=== PATIENT | female | born 1975 | race Caucasian/White ===

== ENCOUNTER → 2017-11-13 | Emergency (ER) | payer BC ==
[~2017-11-13] VITALS: Ht 185.4 cm; Wt 113.4 kg
[~2017-11-13] MED LIST: CALCIUM PO; DAILY VITAMIN1 EAC3 PO; PEPCID20 MG PO; TRIAMCINOLONE A15 G4 TP; VITAMIN E PO
[2017-11-14 00:57] VITALS: BP 151/90
== END | disposition home or self-care (01) ==
LOC: FSED 20:28
DX: R21 Rash and other nonspecific skin eruption (principal); L50.0 Allergic urticaria; F17.210 Nicotine dependence, cigarettes, uncomplicated

== ENCOUNTER 2019-08-10 10:20 | Observation (INO) | payer BC ==
[2019-08-07 13:55] LABS: BILIRUBIN,URINE NEGATIVE (NEGATIVE); CLARITY,URINE SL CLOUDY (CLEAR); COLOR,URINE YELLOW (YELLOW); KETONES,URINE NEGATIVE (NEGATIVE); LEUKOCYTE ESTERASE ,URINE SMALL (NEGATIVE); NITRITE,URINE NEGATIVE (NEGATIVE); PROTEIN,URINE DIPSTICK NEGATIVE (NEGATIVE); URINE UROBILINOGEN 0.2 mg/dL (0.2 - 1)
[2019-08-07 14:03] LABS: ANION GAP 14.7 mmol/L (8-16); BLOOD UREA NITROGEN 10 mg/dL (7-26); BUN/CREATININE RATIO 11 (6-25); CALCIUM 9.9 mg/dL (8.4-10.2); CARBON DIOXIDE 25 mmol/L (22-29); CHLORIDE 101 mmol/L (98-107); CREATININE, SERUM 0.93 mg/dL (0.57-1.11); EST GLOMERULAR FILTRATION RATE > 60 ML/MIN (60-); GLUCOSE 207 mg/dL (74-118); POTASSIUM 3.7 mmol/L (3.5-5.1); SODIUM 137 mmol/L (136-145)
--- NOTE | 2019-08-07 14:03 | Diagnostic Imaging Report ---
EXAMINATION: CHEST 2 VIEWS INDICATION: Pre-operative COMPARISON: None FINDINGS: LINES/TUBES:None LUNGS:The lungs are well-inflated. No focal consolidation or pulmonary edema. PLEURA:No pleural effusion or pneumothorax. MEDIASTINUM:The cardiomediastinal silhouette appears normal in size and shape. BONES/SOFT TISSUES:No acute osseous injury. ABDOMEN:No free air under the diaphragm. IMPRESSION: No focal pneumonia or pulmonary edema. Signed by: Erica Page MD on 08/07/2019 2:00 PM
[2019-08-07 14:17] LABS: BASOPHILS # (AUTO) 0.1 (0.0-0.1); BASOPHILS % 0.6 % (0.0-1.0); EOSINOPHILS # (AUTO) 0.2 (0.0-0.4); EOSINOPHILS % 1.9 % (0.0-6.0); HEMATOCRIT 44.8 % (34.2-44.1); HEMOGLOBIN 15.1 g/dL (12.0-16.0); LYMPHOCYTES # (AUTO) 2.4 (1.0-3.2); LYMPHOCYTES % 27.9 % (18.0-39.1); MEAN CORPUSCULAR HEMOGLOBIN 31.4 pg (28-32); MEAN CORPUSCULAR HGB CONC 33.7 g/dL (31-35); MEAN CORPUSCULAR VOLUME 93.1 fL (81-99); MONOCYTES # (AUTO) 0.5 (0.2-0.8); MONOCYTES % 6.3 % (4.4-11.3); NEUTROPHILS # (AUTO) 5.3 (2.1-6.9); NEUTROPHILS % 62.6 % (38.7-80.0); PLATELET COUNT 250 x10e3/uL (140-360); RED BLOOD COUNT 4.81 x10e6/uL (3.6-5.1); RED CELL DISTRIBUTION WIDTH 12.5 % (11.7-14.4)
[~2019-08-10] VITALS: Ht 185.4 cm; Wt 113.4 kg
[~2019-08-10 10:20] MED LIST changes: +MAGNESIUM100 MG; +PANTOPRAZOLE SO40 MG PO; +SUCRALFATE1 GM PO
--- OUTSIDE RECORDS SUMMARY | 2019-08-10 10:26 | XMS REPORT | Encounter Summary ---
Author Organization Unknown Address [address] [place] [address] Phone [phone] Care Team Providers Care Safety Person Name Role Phone Dr. Tyler Quinonez 3 [phone] Reason for Visit lab follow-up Instructions 1. Prediabetes HbA1c (hemoglobin A1c), blood CMP, serum or plasma 2. Hypertriglyceridemia lipid panel, serum 3. Body mass index 30+ - obesity body mass index: care instructions learning about healthy weight 4. Immunization 5. Tobacco user stopping smoking: care instructions Discussion Note: None recorded. Plan of Care Reminders Provider Appointments Nurse Visit 01/22/2019 8:00AM Nurse [place] Patient 01/29/2019 4:30PM Tyler Bruce MD Lab HbA1C (Hemoglobin a1C), Blood 01/22/2019 [facility] CMP, Serum or Plasma 01/22/2019 [facility] Lipid Panel, Serum 01/22/2019 [facility] Referral None recorded. Procedures None recorded. Surgeries None recorded. Imaging None recorded. Medications Name Start Date Chantix Starting Month Box 0.5 mg (11)-1 mg (42) tablets in dose pack Take 1 startr pk by oral route. pantoprazole 40 mg tablet,delayed release Take 1 tablet every day by oral route for 30 days. sucralfate 1 gram tablet Take 1 tablet twice a day by oral route for 30 days. Medications Administered None recorded. Vitals Height Weight BMI Blood Pressure 6 ft 1 in 235 lbs 31 kg/m2 130/80 mm[Hg] Lab Results Date Name Specimen Result Interpretation Description Value Range Status Address 10/12/2018 CBC W/ Auto Diff Wbc 9.92 x10*3/L 3.98-10.04 x10*3/L Final [facility]: [address] [place] [address], [place] Rbc 4.95 10*12/L 3.93-5.22 10*12/L Final [facility]: [address] [facility] [address] Hemoglobin 15.50 g/dL 11.20-15.70 g/dL Final [facility]: [address] [place] Hematocrit 46.5 % 34.1-44.9 % Final [facility]: [address] [facility] [facility] Mcv 93.9 fL 80.0-100.[address] [facility]: [address] [facility] [facility] Mch 31.3 pg 25.6-32.[address] [facility]: [address] [facility] Mchc 33.3 g/dL 32.2-35.5 g/dL Final [facility]: [address] [facility] RDW-SD 44.0 fL 36.4-46.[address] [facility]: [address] [facility] Platelet Count 243.0 k/uL 182.0-369.0 k/uL Final [facility]: [address] Ang[address] [place] [address] Mpv 11.3 fL 7.5-11.[address] [facility]: [address] [facility] Neut% 62.1 % 34.0-71.1 % Final [facility]: [address] [facility] Lymph% 26.7 % 19.3-51.7 % Final [facility]: [address] [facility] Mon% 8.2 % 4.7-12.5 % Final [facility]: [address] [facility] Eos% 2.6 % 0.7-5.8 % Final [facility]: [address] [facility] Baso% 0.4 % 0.1-1.2 % Final [facility]: [address] Ang[address] [place] [address] High Neut# 6.2 x10*3/L 1.6-6.1 x10*3/L Final [facility]: [address] [facility] Lymph# 2.7 x10*3/L 1.2-3.7 x10*3/L Final [facility]: [address] [facility] Mon# 0.8 x10*3/L 0.2-0.9 x10*3/L Final [facility]: [address] [place] [address] Eos# 0.26 x10*3/L 0.04-0.36 x10*3/L Final [facility]: [address] Angulo [facility] [place] Baso# 0.04 x10*3/L 0.01-0.08 x10*3/L Final [facility]: [address] [facility] 10/12/2018 CMP, Serum or Plasma Alt 20 U/L 0-55 U/L Final [facility]: [address] Ast 20 U/L 5-34 U/L Final [facility]: [address] Bun 11.2 mg/dL 7.0-18.7 mg/dL Final [facility]: [address] Alk Phos 110 unit/L 40-150 unit/L Final [facility]: [address] Sanchez [address] High Glucose 131 mg/dL 70-99 mg/dL Final [facility]: [address] Albumin 3.7 g/dL 3.5-5.0 g/dL Final [facility]: [address] Creatinine 0.78 mg/dL 0.57-1.11 mg/dL Final [facility]: [address] eGFR Non- >60 mL/min/1.73m2 Final [facility]: [address] Total Bilirubin 0.7 mg/dL 0.2-1.2 mg/dL Final [facility]: [address] eGFR - >60 mL/min/1.73m2 Final [facility]: [address] Sodium 139 mEq/L 136-145 mEq/L Final [facility]: [address] High Potassium 5.2 mEq/L 3.5-5.1 mEq/L Final [facility]: [address] Chloride 104 mmol/L 98-107 mmol/L Final [facility]: [address] [place] [address], [place] Total Protein 7.0 g/dL 6.4-8.3 g/dL Final [facility]: [address] [facility] Calcium 9.5 mg/dL 8.4-10.2 mg/dL Final [facility]: [address] Angulo [facility] [place] Co2 29.5 mmol/L 22.0-29.0 mmol/L Final [facility]: [address] Anion Gap [address] [facility]: [address] [place], [place] 10/12/2018 Lipid Panel, Serum Low Hdl 34 mg/dL 40-60 mg/dL Final [facility]: [address] High Triglyceride 319 mg/dL 0-149 mg/dL Final [facility]: [address] VLDL Calc. 64 mg/dL Final [facility]: [address] cholesterol/HDL Ratio 5.9 mg/dL Final [facility]: [address] High non-HDL Cholesterol Calc. 167 mg/dL 0-160 mg/dL Final [facility]: [address] High Cholesterol 201 mg/dL 0-199 mg/dL Final [facility]: [address] LDL Calc. 103 mg/dL 0-130 mg/dL Final [facility]: [address] [place] [address], [place] 10/12/2018 TSH, Serum or Plasma Tsh 1.304 uIU/mL 0.350-4.940 uIU/mL Final [facility]: [address] Allergies Code Code System Name Reaction Severity Status Onset 2670 RxNorm Codeine Vomiting Active NKDA Problems Name Status Onset Date Source Tobacco User Active 09/21/2018 Link's Esophagus Active 09/21/2018 Hypertriglyceridemia Active 11/19/2018 Prediabetes Active 11/19/2018 Procedures Date Name Performed by 10/10/2017 Egd Information not available 10/10/2014 Other Information not available 10/10/1998 Appendectomy Information not available 10/10/1991 Other Information not available Vaccine List Vaccine Type Tdap 06/10/2017 Social History Smoking Status Heavy Tobacco Smoker (1 1/2 PPD) Past Encounters 10/24/2018 Prediabetes; Hypertriglyceridemia; Body Mass Index 30+ - Obesity; Immunization; Tobacco User Natalia Radford MD: [address] [place] [address], Ph. 10/12/2018 Adult Health Examination Natalia Radford MD: [address] [place] [address], Ph. History of Present Illness Note:43yo female presents for follow-up visit. Last visit 08/29/18 for sinus infection. Infection cleared with Abx, but mucus & nasal congestion last another month until almost [place]. Pt did not have much benefit from tessalon perles, but did better with the Bromfed syrup.<div>Here today to review labs from earlier this month on 10/12/18. TSH 1.304, TC 201, HDL 34, LDL 103, TG 319, glu 131, AST 20, Cr 0.78, GFR >60, K 5.2, Ca 9.5, hgb 15.5, wbc 9.92, plt 243K.</div><div>
<div>NKDA. Smoker about 1.5ppd (30 cigarettes/day). Started age 12yo, about 1ppd x 30yrs. Quit for 9mo about four years ago using Chantix.< /div><div> does not smoke.</div><div>PMHx:</div><div>Link's esophagus. Had EGD earlier this year by Dr Chaparro Castro. Is on both PPI & sucralfate.< /div><div>Appendectomy 1998</div><div>Uterine ablation - 2014- Dr Socrates Grissom is gyne.</div><div>Arthroscopic knee surgery on left - 1991</div></div> Review of Systems:ROS as noted in the HPI Review of Systems Comprehensive General Adult ROS Reported By: Patient Constitutional: Constitutional: no fever Eyes: Eyes: no vision change Cardiovascular: Cardiovascular: no chest pain Respiratory: Respiratory: no cough, no wheezing, no shortness of breath Gastrointestinal: Gastrointestinal: no abdominal pain Neurologic: Neurologic: no loss of consciousness, no headaches Psychiatric: Psych: no depression, no alcohol abuse, no anxiety, no suicidal thoughts Physical Exam General Adult Exam (Female) Reported By: Patient Constitutional: General Appearance: healthy-appearing, well-developed, overweight. Level of Distress: NAD. Ambulation: ambulating normally Psychiatric: Mental Status: active and alert, normal mood, normal affect Eyes: Lids and Conjunctivae: non-injected. Pupils: PERRLA. EOM: EOMI. Sclerae: non-icteric ENMT: Hearing: no hearing loss. Oropharynx: moist mucous membranes Neck: Thyroid: non-tender, no nodules Lungs: Respiratory effort: no dyspnea. Auscultation: breath sounds normal, good air movement, no wheezing, no rales/crackles Cardiovascular: Heart Auscultation: RRR, normal S1, normal S2, no murmurs. Neck vessels: no carotid bruits Abdomen: Bowel Sounds: normal. Inspection and Palpation: soft Musculoskeletal:: Joints, Bones, and Muscles: normal movement of all extremities. Extremities: no edema Neurologic: Gait and Station: normal gait Skin: Inspection and palpation: no rash
--- OUTSIDE RECORDS SUMMARY | 2019-08-10 10:26 | XMS REPORT | Encounter Summary ---
Author Organization Unknown Address [address] [place] [address] Phone [phone] Care Team Providers Care International Representative Name Role Phone Dr. Tyler Quinonez 3 [phone] Chaparro Castro MD 107 [phone] Socrates Grissom MD 110 [phone] Reason for Visit lab follow-up Instructions 1. Prediabetes 2. Body mass index 30+ - obesity body mass index: care instructions learning about healthy weight 3. Obesity 4. Influenza vaccination declined 5. Link's esophagus 6. Tobacco user stopping smoking: care instructions Discussion Note: None recorded. Plan of Care Reminders Provider Appointments Return to Office on or around 12/11/2019 Natalia Radford MD Lab None recorded. Referral None recorded. Procedures None recorded. Surgeries None recorded. Imaging None recorded. Medications Name Start Date pantoprazole 40 mg tablet,delayed release Take 1 tablet every day by oral route for 30 days. sucralfate 1 gram tablet Take 1 tablet every day by oral route. Medications Administered None recorded. Vitals Height Weight BMI Blood Pressure 6 ft 1 in 232.6 lbs 30.7 kg/m2 126/82 mm[Hg] Lab Results Date Name Specimen Result Interpretation Description Value Range Status Address 06/05/2019 CMP, Serum or Plasma Alt 14 U/L 0-55 U/L Final [facility]: [address] Ast 13 U/L 5-34 U/L Final [facility]: [address] Bun 9.6 mg/dL 7.0-25.0 mg/dL Final [facility]: [address] Alk Phos 102 unit/L 40-150 unit/L Final [facility]: [address] High Glucose 119 mg/dL 70-99 mg/dL Final [facility]: [address] Albumin 3.7 g/dL 3.4-5.1 g/dL Final [facility] [address] [facility] Creatinine 0.81 mg/dL 0.57-1.11 mg/dL Final [facility]: [address] eGFR Non- >60 mL/min/1.73m2 Final [facility]: [address] Total Bilirubin 0.4 mg/dL 0.2-1.2 mg/dL Final [facility]: [address] eGFR - >60 mL/min/1.73m2 Final [facility] [address] [facility] Sodium 139 mEq/L 135-145 mEq/L Final [facility]: [address] Potassium 4.9 mEq/L 3.5-5.1 mEq/L Final [facility]: [address] Chloride 105 mmol/L 98-110 mmol/L Final [facility]: [address] Total Protein 6.7 g/dL 6.1-8.2 g/dL Final [facility]: [address] [place] [address] Calcium 9.7 mg/dL 8.6-10.4 mg/dL Final [facility]: [address] Co2 29.4 mmol/L 20.0-32.0 mmol/L Final [facility]: [address] Anion Gap 5 calc Final [facility]: [address] [place] [address] 06/05/2019 Lipid Panel, Serum Low Hdl 32 mg/dL Final [facility]: [address] High Triglyceride 203 mg/dL 0-150 mg/dL Final [facility]: [address] VLDL (Calculated) 41 mg/dL Final [facility]: [address] cholesterol/HDL Ratio 6.0 mg/dL Final [facility]: [address] non-HDL Cholesterol (Calculated) 159 mg/dL 0-160 mg/dL Final [facility]: [address] Cholesterol 191 mg/dL 0-200 mg/dL Final [facility]: [address] [place] [address], [place] LDL (Calculated) 118 mg/dL 0-130 mg/dL Final [facility]: [address] [place] [address], [place] 06/05/2019 HbA1C (Hemoglobin a1C), Blood High A1C W/eag 6.4 % 1.0-5.7 % Final [facility]: [address] [place] [address], [place] Average Blood Glucose 137 mg/dL Final [facility]: [address] [place] [address], [place] Allergies Code Code System Name Reaction Severity Status Onset 267 RxNorm Codeine Vomiting Active Problems Name Status Onset Date Source Tobacco User Active 09/21/2018 Link's Esophagus Active 09/21/2018 Hypertriglyceridemia Active 11/19/2018 Prediabetes Active 11/19/2018 Procedures Date Name Performed by 10/10/2017 Egd Information not available 10/10/2014 Other Information not available 10/10/1998 Appendectomy Information not available 10/10/1991 Other Information not available Vaccine List Vaccine Type Tdap 06/10/2017 Social History Tobacco Smoking Status Heavy Tobacco Smoker (1 1/2 PPD) Past Encounters 06/12/2019 Prediabetes; Body Mass Index 30+ - Obesity; Obesity; Influenza Vaccination Declined; Link's Esophagus; Tobacco User Natalia Radford MD: [address] [place] [phone], Ph. 06/05/2019 Prediabetes; Hypertriglyceridemia Natalia Radford MD: [address] [place] [phone], Ph. History of Present Illness Note:43yo female presents for follow-up visit. Last visit three months ago on 01/22/19. Pt recently came to office for fasting labs on 06/05/19 with hgb A1c 6.4%, TC 191, HDL 32, LDL 118, TG 203, CMP normal except glu 119. Prior labs on 01/22/19 with hgb A1c of 6.6%, TC 207, HDL 34, LDL 117, TG 279, AST 17, glu 125, Cr 0.80, GFR >60, K 5.0, Ca 10.0.<div><div><div>Pt without c/o today. No SOB or CP. No Lightheadedness. Patient is taking medicine consistently from Dr Castro, GI. Not having any issues with them. <span>Results of labs reviewed with pt & amp; printed copy given. </span></div>No longer taking Chantix. Still smoking. Has Chantix at home, does not need new Rx.</div><div>Pt has been trying to lose weight - lost 14# in past 3mo. Has completely cut out sodas (Coca-Cola) for water. Walking steps.</div><div>Has appt for [employer] with Pap with gyne, Dr Grissom later in Jun 2019.
<div>
<div>Previously:
<div>NKDA. Smoker about 1.5ppd (30 cigarettes/day). Started age 12yo, about 1ppd x 30yrs. Quit for 9mo about four years ago using Chantix.</div><div> does not smoke.</div><div> PMHx:</div><div>Link's esophagus. Had EGD in [address] Chaparro Castro. Is on both PPI & sucralfate.</div><div>Appendectomy 1998</div><div>Uterine ablation - 2014- Dr Socrates Grissom is gyne.</div><div>Arthroscopic knee surgery on left - 1991</div></div></div></div></div> Review of Systems:ROS as noted in the [...]
--- OUTSIDE RECORDS SUMMARY | 2019-08-10 10:26 | XMS REPORT | Encounter Summary ---
Author Organization Unknown Address [address] [place] [address] Phone [phone] Care Team Providers Care Bpo Specialist Name Role Phone Dr. Tyler Quinonez 3 [phone] Chaparro Castro MD 107 [phone] Socrates Grissom MD 110 [phone] Reason for Visit lab follow-up Instructions 1. Prediabetes HbA1c (hemoglobin A1c), blood 2. Mixed hyperlipidemia lipid panel, serum CMP, serum or plasma 3. Body mass index 30+ - obesity body mass index: care instructions learning about healthy weight 4. Link's esophagus 5. Tobacco user stopping smoking: care instructions Discussion Note: None recorded. Plan of Care Reminders Provider Appointments Nurse Visit 05/08/2019 8:15AM Nurse [place] Patient 05/15/2019 4:00PM Natalia Radford MD Lab HbA1C (Hemoglobin a1C), Blood 05/07/[address] [facility] Lipid Panel, Serum 05/07/[address] [facility] CMP, Serum or Plasma 05/07/[address] [facility] Referral None recorded. Procedures None [...] BMI Blood Pressure 6 ft 1 in 246.8 lbs 32.6 kg/m2 122/84 mm[Hg] Lab Results Date Name Specimen Result Interpretation Description Value Range Status Address 01/22/2019 CMP, Serum or Plasma Alt 16 U/L 0-55 U/L Final [facility]: [address] Ast 17 U/L 5-34 U/L Final [facility]: [address] [place] Bun 10.4 mg/dL 7.0-18.7 mg/dL Final [facility]: [address], [place] Alk Phos 115 unit/L 40-150 unit/L Final [facility]: [address], [place] High Glucose 125 mg/dL 70-99 mg/dL Final [facility]: [address], [place] Albumin 3.9 g/dL 3.5-5.0 g/dL Final [facility]: [address], [place] Creatinine 0.80 mg/dL 0.57-1.11 mg/dL Final [facility]: [address], [place] eGFR Non- >60 mL/min/1.73m2 Final [facility]: [address] [place] Total Bilirubin 0.5 mg/dL 0.2-1.2 mg/dL Final [facility] [facility] >60 mL/min/1.73m2 Final [facility]: [facility] [facility] Sodium 137 mEq/L 136-145 mEq/L Final [facility] [address] [facility] Potassium 5.0 mEq/L 3.5-5.1 mEq/L Final [facility] [address] [facility] Chloride 104 mmol/L 98-107 mmol/L Final [facility] [address] [facility] Total Protein 6.8 g/dL 6.4-8.3 g/dL Final [facility] [address] [facility] Calcium 10.0 mg/dL 8.6-10.4 mg/dL Final [facility] [address] [facility] Low Co2 21.9 mmol/L 22.0-29.0 mmol/L Final [facility]: [address], [place] Anion Gap 11 calc Final [facility] [address] [facility] 01/22/2019 Lipid Panel, Serum Low Hdl 34 mg/dL 40-60 mg/dL Final [facility]: [address] [place] [address], [place] High Triglyceride 279 mg/dL 0-149 mg/dL Final [facility]: [address] Ari[address] Angulo [facility], [place] VLDL Calc. 56 mg/dL Final [facility]: [address] Angulo [facility], [place] cholesterol/HDL Ratio 6.1 mg/dL Final [facility]: [address] High non-HDL Cholesterol Calc. 173 mg/dL 0-160 mg/dL Final [facility]: [address] [place] [address], [place] High Cholesterol 207 mg/dL 0-199 mg/dL Final [facility]: [address] [place] [address], [place] LDL Calc. 117 mg/dL 0-130 mg/dL Final [facility]: [address] [place] [address], [place] 01/22/2019 HbA1C (Hemoglobin a1C), Blood High A1C W/eag 6.6 % 1.0-5.7 % Final [facility]: [address] [place] [address], [place] Average Blood Glucose 143 mg/dL Final [facility]: [address] [place] [address], [place] Allergies Code Code System Name Reaction Severity Status Onset 2670 RxNorm Codeine Vomiting Active Problems Name Status [...] Tobacco Smoker (1 1/2 PPD) Past Encounters 02/05/2019 Prediabetes; Mixed Hyperlipidemia; Body Mass Index 30+ - Obesity; Link's Esophagus; Tobacco User Natalia Radford MD: [address] [place] [phone], Ph. 01/22/2019 Prediabetes; Hypertriglyceridemia Natalia Radford MD: [address] [place] [address], Ph. History of Present Illness Note:43yo female presents for follow-up visit. Last visit three months ago on 10/24/18. Pt recently came to office for fasting labs on 01/22/19 with hgb A1c of 6.6%, TC 207, HDL 34, LDL 117, TG 279, AST 17, glu 125, Cr 0.80, GFR >60, K 5.0, Ca 10.0.<div><div>Pt without c/o today. No SOB or CP. No Lightheadedness. Patient is taking medicine consistently. Not having any issues with them. <span> Results of labs reviewed with pt. </span></div>No longer taking Chantix.
<div >
<div>Previously:
<div>NKDA. Smoker about 1.5ppd (30 cigarettes/day). Started age 12yo, about 1ppd x 30yrs. Quit for 9mo about four years ago using Chantix.</div><div> does not smoke.</div><div>PMHx:</div><div>Link's esophagus. Had EGD in [address] Chaparro Castro. Is on both PPI & sucralfate.< /div><div>Appendectomy 1998</div><div>Uterine ablation - 2014- Dr Socrates Grissom is gyne.</div><div>Arthroscopic knee surgery on left - 1991</div></div></div></div > Review of Systems:ROS as noted in the [...]
--- OUTSIDE RECORDS SUMMARY | 2019-08-10 10:26 | XMS REPORT | Encounter Summary ---
Author Organization Unknown Address [address] [place] [id number] Phone [phone] Care Team Providers Care Social Problems Specialist Name Role Phone Dr. Tyler Quinonez 3 [phone] Reason for Visit lab only visit Instructions 1. Prediabetes HbA1c (hemoglobin A1c), blood CMP, serum or plasma 2. Hypertriglyceridemia lipid panel, serum Discussion Note: None recorded. Patient educational handouts: No information available. Plan of Care Reminders Provider Appointments Est Patient 02/05/2019 4:30PM Tyler Bruce MD Lab HbA1C (Hemoglobin a1C), Blood 01/22/2019 [facility] CMP, Serum or Plasma 01/22/2019 [facility] Lipid Panel, Serum 01/22/2019 [facility] Referral None recorded. Procedures None recorded. Surgeries None recorded. Imaging None recorded. Medications Name Start Date Chantix Starting Month Box 0.5 mg (11)-1 mg (42) tablets in dose pack Take 1 startr pk by oral route. metronidazole 500 mg tablet pantoprazole 40 mg tablet,delayed release Take 1 tablet every day by oral route for 30 days. sucralfate 1 gram tablet Take 1 tablet twice a day by oral route for 30 days. Medications Administered None recorded. Vitals None recorded. Lab Results None recorded. Allergies Code Code System Name Reaction Severity Status Onset 267 RxNorm Codeine Vomiting Active NKDA Problems Name [...] Tobacco Smoker (1 1/2 PPD) Past Encounters 01/22/2019 Prediabetes; Hypertriglyceridemia Natalia Radford MD: [id number] [place] [address], Ph. History of Present Illness None recorded. Review of Systems None recorded. Physical Exam None recorded.
--- OUTSIDE RECORDS SUMMARY | 2019-08-10 10:26 | XMS REPORT ---
Author Author [facility] Address Unknown Phone Unavailable Care Team Providers Care Track Announcer Name Role Phone CAROL TORRES Unavailable Unavailable Problems This patient has no known problems. Allergies, Adverse Reactions, Alerts This patient has no known allergies or adverse reactions. Medications This patient has no known medications. Results Test Description Test Time Test Comments Text Results Atomic Results Result Comments CHEST 2 VIEWS 2019-08-07 13:59:00 [place] [address] Patient Name: LEHA FAROOQ MR #: [id number] : 1975 Age/Sex: 43/F Req #: [id number] [facility] Physician: Ordered by: CAROL TORRES MD Report #: [id number] Location: OR Room/Bed: Procedure: [id number] DX/CHEST 2 VIEWS Exam Date: 08/07/19 Exam Time: 1300 REPORT STATUS: Signed EXAMINATION: CHEST 2 VIEWS INDICATION: Pre-operative COMPARISON: None FINDINGS: LINES/TUBES:None LUNGS:The lungs are well-inflated. No focal consolidation or pulmonary edema. PLEURA:No pleural effusion or pneumothorax. MEDIASTINUM:The cardiomediastinal silhouette appears normal in size and shape. BONES/SOFT TISSUES:No acute osseous injury. ABDOMEN:No free air under the diaphragm. IMPRESSION: No focal pneumonia or pulmonary edema. Signed by: Hanane Page MD on 08/07/2019 2:00 PM Dictated By: HANANE PAGE MD 99 Transcribed By: ROYCE on 08/07/191399 COPY TO: CAROL TORRES MD
[2019-08-10] MEDS ORDERED: CEFAZOLIN SOD 1 GM/NS 50ML 100 ML IV ONE (10:32)
[2019-08-10] MEDS ORDERED: ESTROGENS CONJUGATED VAGINAL CR 45 GM TUBE PV ONE (13:15)
[2019-08-10] MEDS ORDERED: BUPIVACAINE 0.25%/EPI 30ML SDV INJ ONE (14:00)
[2019-08-10] MEDS ORDERED: ACETAMINOPHEN 1000 MG/100 ML 100 ML IV ONE (14:33)
[2019-08-10] MEDS ORDERED: HYDROMORPHONE 2MG/ML 2 MG/ML ML ONE (14:34)
[2019-08-10] MEDS ORDERED: FENTANYL CITRATE/PF 100MCG/2 ML INJ ONE (14:40)
[2019-08-10] MEDS ORDERED: MIDAZOLAM HCL 2 MG/2 ML VIAL ONE (14:40)
[2019-08-10] MEDS ORDERED: KETOROLAC TROMETHAMINE 30 MG/ML VIAL ONE (15:27)
[2019-08-10] MEDS ORDERED: ONDANSETRON HCL INJ 2MG/ML 2ML 2 MG/ML VIAL ONE (15:27)
[2019-08-10] MEDS ORDERED: DEXAMETHASONE SOD PHOS INJ 4 MG/ML VIAL ONE (15:27)
[2019-08-10] MEDS ORDERED: GLYCOPYRROLATE INJ 1MG/ 5 ML SYR ONE (15:27)
[2019-08-10] MEDS ORDERED: ROCURONIUM BROMIDE 10 MG/ML 5ML VIAL ONE (15:27)
[2019-08-10] MEDS ORDERED: NEOSTIGMINE 5 MG/5ML SYR ONE (15:27)
[2019-08-10] MEDS ORDERED: PROPOFOL IV EMULSION 10 MG/ML 20 ML VIAL ONE (15:27)
[2019-08-10] MEDS ORDERED: LIDOCAINE HCL 2% LOCAL INJ 5 ML SDV VIAL INJ ONE (15:27)
[2019-08-10] MEDS ORDERED: SEVOFLURANE INHAL SOLN 250 ML PEN BTL ONE (15:27)
[2019-08-10] MEDS: SUCRALFATE 1 GM TAB PO SCH (17:00)
[2019-08-10] MEDS ORDERED: ONDANSETRON HCL INJ 2MG/ML 2ML 2 MG/ML VIAL IV PRN (17:00)
[2019-08-10] MEDS ORDERED: MORPHINE SULFATE 2 MG/ML SYR 1ML IV PRN (17:00)
[2019-08-10] MEDS ORDERED: BISACODYL 10 MG SUPP PR PRN (17:00)
[2019-08-10] MEDS ORDERED: DIPHENHYDRAMINE HCL 25 MG CAP PO PRN (17:00)
[2019-08-10] MEDS ORDERED: ACETAMINOPHEN 325 MG TAB PO PRN (17:00)
[2019-08-10] MEDS ORDERED: KETOROLAC TROMETHAMINE 30 MG/ML VIAL IV PRN (17:00)
[2019-08-10] MEDS ORDERED: SIMETHICONE 80 MG CHEW PO PRN (17:00)
[2019-08-10] MEDS ORDERED: DOCUSATE SODIUM 100 MG CAP PO PRN (17:00)
[2019-08-10] MEDS ORDERED: ACETAMINOPHEN/CODEINE 300MG - 30MG TAB PO PRN (17:00)
[2019-08-10] MEDS ORDERED: LABETALOL HCL 0 ML ONE (18:04)
[2019-08-10] MEDS: NICOTINE 14 MG/EA PATCH TOP SCH (19:00)
--- NOTE | 2019-08-10 19:43 | NUR ---
ROUNDS DONE WITH AM NURSE, PATIENT RESTING IN BED WITH HOB SLIGHTLY ELEVATED, NO COMPLAINTS OF PAIN. REQUESTED JUICE, CLEAR LIQUID DIET GIVEN. CALL LIGHT REMAIN IN REACH. WILL CONTINUE TO MONITOR. FAMILY AT THE BEDSIDE.
[2019-08-10] MEDS ORDERED: PANTOPRAZOLE SOD 40 MG TABEC PO SCH (21:00)
[2019-08-10 21:49] VITALS: BP 161/79
[2019-08-10] MEDS ORDERED: CEFAZOLIN SOD 1 GM VIAL IV SCH ×2 (22:00)
[2019-08-10] MEDS: LACTATED RINGER'S 1,000 ML IV SCH ×2 (22:21→23:30)
[2019-08-10] MEDS: CEFAZOLIN SOD 2 GM/D5W 50ML 50 ML IV SCH (22:29)
--- NOTE | 2019-08-10 23:16 | Operative Report ---
DATE OF PROCEDURE: 08/10/2019 SURGEON: Socrates Grissom MD PREOPERATIVE DIAGNOSES: Abnormal uterine bleeding, fibroid uterus, and failed endometrial ablation. POSTOPERATIVE DIAGNOSES: Abnormal uterine bleeding, fibroid uterus, and failed endometrial ablation. TITLE OF PROCEDURE: Total laparoscopic hysterectomy and bilateral salpingectomy. BUCKLE ATTACHING MACHINE OPERATOR: Dr. Osvaldo Syed. ANESTHESIA: General with Dr. Hameed and Safia, assistant branch operations manager. INDICATION FOR OPERATION: The patient is a 43-year-old 1, para 1, last menstrual period on July 17, 2019, who is status post endometrial ablation in 2014, who recently has had increased bleeding after not having much in the way. For few years, she bled for six weeks straight and she is here for total laparoscopic hysterectomy and bilateral salpingectomy secondary to failed endometrial ablation. Sono revealed a 3 cm myoma impinging on the endometrial cavity, which is the likely cause of the bleeding. She is therefore taken to the operating room at this time. Alternatives were offered. She has chosen laparoscopic hysterectomy at this time. FINDINGS AT SURGERY: The uterus was nodular, 10-week size. Normal tubes and ovaries. There were adhesions from her old appendicitis, which were from omentum to anterior abdominal wall. These adhesions were lysed. DESCRIPTION OF PROCEDURE: The patient was taken to the operating room and placed on the table in supine position. General anesthesia was administered. The patient was then placed in the lithotomy position. The perineum was prepared and draped in the usual sterile manner as was the abdomen. Pelvic exam revealed a 46-week size nodular uterus retroverted with no adnexal masses. A Jang catheter was placed in bladder for constant drainage. A tenaculum was placed on the cervix after a weighted speculum was placed in posterior vaginal wall and then the VCare manipulator was placed on the cervix after the cervix was dilated using Almazan dilators up to #13. Once the device was placed, it was apparent that it was completely around the cervix. The photo booth operator changed gloves and we proceeded with the laparoscopic portion of the procedure. A small incision was made just inferior to the umbilicus in the midline. The Veress needle was inserted through the incision into the peritoneal cavity. Pneumoperitoneum was created by insufflation of 4 L of carbon dioxide gas and a filling pressure of 8-10 mmHg. The Veress needle was removed and trocar was inserted through the incision into the peritoneal cavity. The laparoscope was placed with confirmation of the peritoneal cavity being entered. The adhesions were noted just inferior to the laparoscope. The decision was made to lyse these adhesions. The second and third trocars were placed right and left of the laparoscopic trocar under direct visualization by laparoscopy. The probes were placed. The contents of the abdomen and pelvis were visualized with approximately 10- week size uterus, nodular, but mobile, but adhesions of omentum to the anterior abdominal wall were then lysed with the LigaSure instrument. All the adhesions were grasped at the point attached to the anterior abdominal wall. Then, the LigaSure was applied and the adhesions were cut and this was performed until all the adhesions were freed up and then attention was turned to the uterus, tubes, and ovaries. The tubes and ovaries were within normal limits. The uterus was enlarged and nodular. First, the right tube was grasped and the LigaSure instrument was placed over the mesosalpinx clamping, coagulating, and cutting until the tube was freed from the ovary and then we went down the mesosalpinx all the way to the round ligament with the LigaSure instrument, clamping, coagulating and cutting and then the round ligament was clamped, coagulated, and cut and then the anterior peritoneum was opened using the LigaSure instrument, clamping, coagulating, and cutting, and then the broad ligament was skeletonized. The uterus was skeletonized and then the uterine vessels on that side were clamped, coagulated, and cut with good hemostasis noted. Then, adhesions in the cul-de-sac were lysed and then attention was turned to the left adnexa. The left tube was grasped and then the mesosalpinx on that side was clamped, coagulated, and cut the tube from the ovary and then the mesosalpinx was clamped, coagulated, and cut down until we got to the round ligament. The round ligament was then clamped, coagulated, and cut and then the anterior peritoneum was opened to the midline where it had been opened on the other side clamping, coagulating, and cutting. Then, the bladder was pushed away and the VCare cup was identified and at this point, we skeletonized the uterine vessels on the left side, coagulating and cutting and then the uterine vessels themselves were clamped, coagulated, and cut. There was good hemostasis in evidence and then the uterosacral ligaments were clamped, coagulated, and cut and then the cervix was circumscribed cutting within the VCare cup using an L hook monopolar current. Coagulation and cutting with this were done until the entire cervix was cut away from its attachments and then at this point, we proceeded to free the uterus and removed vaginally and sent it to pathology for definitive diagnosis. We then stitched the vaginal cuff with [id number] stitches of Vicryl suture using the laparoscopic needle trinidad. There was good hemostasis in evidence at the cuff, although there was a little raw area on the left side it was too close to the bladder to want to coagulate. We irrigated and suctioned and once the cuff was completely closed. After irrigating and suctioning, we placed Surgicel on the left side near the vaginal cuff for hemostasis and then Dr. Syed proceeded to fill the bladder with saline while we were visualizing the bladder laparoscopically. There were no apparent leaks in the bladder and at this point, he removed the Jang and did a cystoscopy. We saw was no evidence of any bladder damage and there was good urine output from the ureteral jets. At this point, the cystoscope was removed and we proceeded to close. All the air and instruments were removed from the abdomen. The skin incisions were closed with inverted stitches of 4-0 Monocryl suture thus completing the procedure. A Jang catheter was placed in the bladder for drainage with clear urine being obtained. There were no complications noted. Estimated blood loss was 100 mL. The patient tolerated the procedure well, was transferred from the operating room to recovery room in stable condition. All counts were correct. The patient received Ancef prophylaxis. Dr. Syed assisted with retraction, hemostasis, visualization, suturing, irrigation, and suctioning MD JAZMIN Shine/JODIE /[id number] SHERYL
--- NOTE | 2019-08-11 00:22 | NUR ---
SHERWOOD CATHETER WAS DISCONTINUED AND PATIENT VOIDED WITHOUT ANY ISSUES. IV CONTINUE INFUSING, WILL CONTINUE TO MONITOR.
[2019-08-11 01:39] VITALS: BP 161/79
[2019-08-11 01:48] VITALS: BP 130/65
[2019-08-11 04:00] VITALS: BP 123/64
--- NOTE | 2019-08-11 04:11 | NUR ---
CONTINUE RESTING NO COMPLAINTS OF PAIN OR ANY DISCOMFORT. CALL LIGHT REMAIN IN REACH. IV CONTINUE INFUSING.
[2019-08-11 05:25] LABS: BASOPHILS % 0.2 % (0.0-1.0); EOSINOPHILS % 0.1 % (0.0-6.0); HEMATOCRIT 39.6 % (34.2-44.1); HEMOGLOBIN 13.5 g/dL (12.0-16.0); LYMPHOCYTES # (AUTO) 2.1 (1.0-3.2); LYMPHOCYTES % 12.9 % (18.0-39.1); MEAN CORPUSCULAR HEMOGLOBIN 31.2 pg (28-32); MEAN CORPUSCULAR HGB CONC 34.1 g/dL (31-35); MEAN CORPUSCULAR VOLUME 91.5 fL (81-99); MONOCYTES % 5.7 % (4.4-11.3); NEUTROPHILS # (AUTO) 13.4 (2.1-6.9); NEUTROPHILS % 80.6 % (38.7-80.0); PLATELET COUNT 226 x10e3/uL (140-360); RED BLOOD COUNT 4.33 x10e6/uL (3.6-5.1); RED CELL DISTRIBUTION WIDTH 12.5 % (11.7-14.4)
[2019-08-11 05:44] LABS: ANION GAP 12.2 mmol/L (8-16); BLOOD UREA NITROGEN 8 mg/dL (7-26); BUN/CREATININE RATIO 12 (6-25); CALCIUM 8.8 mg/dL (8.4-10.2); CARBON DIOXIDE 24 mmol/L (22-29); CHLORIDE 102 mmol/L (98-107); CREATININE, SERUM 0.68 mg/dL (0.57-1.11); EST GLOMERULAR FILTRATION RATE > 60 ML/MIN (60-); GLUCOSE 106 mg/dL (74-118); POTASSIUM 4.2 mmol/L (3.5-5.1); SODIUM 134 mmol/L (136-145)
[2019-08-11] MEDS: LACTATED RINGER'S 1,000 ML IV SCH ×2 (06:03→11:10)
[2019-08-11] MEDS: CEFAZOLIN SOD 2 GM/D5W 50ML 50 ML IV SCH ×2 (06:03→11:17)
--- NOTE | 2019-08-11 07:17 | NUR ---
ROUNDS DONE WITH AM NURSE, PATIENT CONTINUE RESTING, NO DISTRESS NOTED. CALL LIGHT IN REACH.
[2019-08-11] MEDS: NICOTINE 14 MG/EA PATCH TOP SCH (08:43)
[2019-08-11] MEDS: SUCRALFATE 1 GM TAB PO SCH (08:43)
--- NOTE | 2019-08-11 08:44 | NUR ---
The pt. is post op vaginal hysterectomy on 08/11 and denies pain other than gas. There are three puncture sites on the abdomen that are clean a Addendum: 08/11/19 at 0846 by Adriana Perez RN and dry with band-aids intact. She was medicated for the complaint of pain.
[2019-08-11 08:51] VITALS: BP 117/63
--- NOTE | 2019-08-11 12:15 | NUR ---
The pt's iv was removed and dsicharg information was provided. The pt. was escorted to private car via w/c for transport home.
== END 2019-08-11 12:10 | disposition home or self-care (01) ==
LOC: OR 10:20 → MED/SURG 18:25
PROVIDERS: ADMIT Obstetrics & Gynecology; ATTEND Obstetrics & Gynecology
DX: D25.1 Intramural leiomyoma of uterus (principal); N94.6 Dysmenorrhea, unspecified; D25.2 Subserosal leiomyoma of uterus; F17.200 Nicotine dependence, unspecified, uncomplicated; E11.9 Type 2 diabetes mellitus without complications
CPT/HCPCS: 36415 ×3; 58571; 71046; 80048 ×2; 81003; 82948; 84702; 85025 ×2; 86850; 86870; 86880; 86900; 86905; 88307; 93005; 99001; G0378 ×2; J0131; J0690 ×3; J1100; J1170; J1885; J2001; J2250; J2405; J2704; J3010; J3490; J7121 ×2; S0164